=== PATIENT | female | born 1935 | race Caucasian/White ===

== ENCOUNTER 2023-06-26 15:34 | Inpatient (IN) | payer OTHER ==
[2023-06-26 17:40] LABS: BASO % 0.8 % (0-2.0); EOS % 7.8 % (0-4.5); HEMATOCRIT 22.9 % (32.4-45.2); HEMOGLOBIN 7.4 GM/dL (10.7-15.3); LYMPH % 25.5 % (8-40); MCH 30.3 pg (25.7-33.7); MCHC 32.3 g/dl (32.0-36.0); MEAN CELL VOLUME 93.5 fl (80-96); MEAN PLT VOLUME 7.7 fl (7.5-11.1); MONO % 6.8 % (3.8-10.2); NEUT % 59.1 % (42.8-82.8); PLATELET COUNT 330 10^3/uL (134-434); RBC 2.45 M/mm3 (3.60-5.2); RDW 15.7 % (11.6-15.6); WHITE BLOOD COUNT 8.4 K/mm3 (4.0-10.0)
[2023-06-26 17:46] LABS: INR 1.47 (0.83-1.09)
[2023-06-26 17:49] LABS: ACTIVATED PTT 29.5 SECONDS (25.2-36.5)
[2023-06-26 18:03] LABS: ALBUMIN 2.2 g/dl (3.4-5.0); BLOOD UREA NITROGEN 55.5 mg/dL (7-18); CALCIUM 11.8 mg/dL (8.5-10.1)
[2023-06-26 18:06] LABS: CREATININE 1.7 mg/dL (0.55-1.3)
[2023-06-26 18:08] LABS: BILIRUBIN,TOTAL 0.3 mg/dL (0.2-1); TOT PROT 7.3 g/dl (6.4-8.2)
[2023-06-27 10:00] LABS: BASO % 0.9 % (0-2.0); EOS % 8.5 % (0-4.5); HEMATOCRIT 24.8 % (32.4-45.2); HEMOGLOBIN 7.9 GM/dL (10.7-15.3); LYMPH % 23.8 % (8-40); MCH 30.4 pg (25.7-33.7); MCHC 31.8 g/dl (32.0-36.0); MEAN CELL VOLUME 95.8 fl (80-96); MEAN PLT VOLUME 8.3 fl (7.5-11.1); MONO % 6.6 % (3.8-10.2); NEUT % 60.2 % (42.8-82.8); PLATELET COUNT 338 10^3/uL (134-434); RBC 2.59 M/mm3 (3.60-5.2); RDW 15.7 % (11.6-15.6); WHITE BLOOD COUNT 8.1 K/mm3 (4.0-10.0)
[2023-06-27 10:31] LABS: POTASSIUM 3.4 mmol/L (3.5-5.1)
[2023-06-27 10:41] LABS: BLOOD UREA NITROGEN 52.3 mg/dL (7-18); CALCIUM 11.6 mg/dL (8.5-10.1)
[2023-06-27 10:42] LABS: ALBUMIN 2.4 g/dl (3.4-5.0)
[2023-06-27 10:44] LABS: CREATININE 1.7 mg/dL (0.55-1.3)
[2023-06-27 10:45] LABS: BILIRUBIN,TOTAL 0.5 mg/dL (0.2-1); TOT PROT 7.4 g/dl (6.4-8.2)
[2023-06-27] MEDS ORDERED: FUROSEMIDE 40 MG/4 ML INJECTABLE VIAL IVPUSH ONE (13:52)
[2023-06-27] MEDS ORDERED: POTASSIUM CHLORIDE ORAL LIQUID 20 MEQ/15 ML PO ONE (13:55)
[2023-06-27] MEDS ORDERED: PANTOPRAZOLE 40 MG TABLET PO SCH (14:00)
[2023-06-27] MEDS ORDERED: POTASSIUM CHLORIDE ORAL LIQUID 20 MEQ/15 ML PEG ONE (14:51)
[2023-06-27] MEDS: PANTOPRAZOLE SOD 40 MG SUSPENSION PACKET PO SCH (21:57)
[2023-06-28 05:43] VITALS: RESP 18
[2023-06-28] MEDS ORDERED: LISINOPRIL 5 MG TABLET PO SCH (10:00)
[2023-06-28] MEDS ORDERED: NADOLOL 20 MG TABLET (FP) PO SCH (10:00)
[2023-06-28] MEDS ORDERED: amLODIPine BESYLATE 5 MG TABLET (FP) PO SCH (10:00)
[2023-06-28] MEDS ORDERED: APIXABAN 2.5 MG TABLET PO SCH (10:00)
[2023-06-28 10:18] LABS: HEMATOCRIT 35.3 % (32.4-45.2); HEMOGLOBIN 11.8 GM/dL (10.7-15.3); LYMPH % 21.6 % (8-40); MCH 30.3 pg (25.7-33.7); MCHC 33.5 g/dl (32.0-36.0); MEAN CELL VOLUME 90.4 fl (80-96); MEAN PLT VOLUME 8.4 fl (7.5-11.1); MONO % 6.8 % (3.8-10.2); NEUT % 63.6 % (42.8-82.8); PLATELET COUNT 311 10^3/uL (134-434); RBC 3.91 M/mm3 (3.60-5.2); RDW 16.6 % (11.6-15.6); WHITE BLOOD COUNT 8.3 K/mm3 (4.0-10.0)
[2023-06-28 10:26] LABS: POTASSIUM 3.4 mmol/L (3.5-5.1)
[2023-06-28 10:38] LABS: ALBUMIN 2.5 g/dl (3.4-5.0); CALCIUM 11.8 mg/dL (8.5-10.1)
[2023-06-28 10:39] LABS: BLOOD UREA NITROGEN 54.7 mg/dL (7-18)
[2023-06-28 10:41] LABS: CREATININE 1.7 mg/dL (0.55-1.3)
[2023-06-28 10:43] LABS: BILIRUBIN,TOTAL 0.8 mg/dL (0.2-1); TOT PROT 7.8 g/dl (6.4-8.2)
[2023-06-28] MEDS: PANTOPRAZOLE SOD 40 MG SUSPENSION PACKET PO SCH (10:57)
[2023-06-28 11:07] VITALS: BMI 29.8
[2023-06-28] MEDS: ALBUTEROL SO4 2.5/IPRATROPIUM 0.5 INH SOL 3 ML VIAL.NEB. NEB SCH ×3 (11:25→21:22)
[2023-06-28] MEDS ORDERED: POTASSIUM CHLORIDE TABS 20 MEQ TABLET.ER (FP) PO ONE (15:50)
[2023-06-28] MEDS ORDERED: POTASSIUM CHLORIDE ORAL LIQUID 20 MEQ/15 ML GT ONE (18:44)
[2023-06-28] MEDS ORDERED: ATORVASTATIN CA 40 MG TABLET (FP) PO SCH (22:00)
[2023-06-28] MEDS: PANTOPRAZOLE SODIUM 40 MG VIAL IVPUSH SCH (22:18)
[2023-06-28] MEDS: APIXABAN 2.5 MG TABLET PEG SCH (22:18)
[2023-06-28] MEDS: ATORVASTATIN CA 40 MG TABLET (FP) PEG SCH (22:18)
[2023-06-29] MEDS: ALBUTEROL SO4 2.5/IPRATROPIUM 0.5 INH SOL 3 ML VIAL.NEB. NEB SCH ×4 (07:15→20:18)
[2023-06-29 10:40] LABS: BASO % 1.2 % (0-2.0); EOS % 5.7 % (0-4.5); HEMATOCRIT 35.3 % (32.4-45.2); HEMOGLOBIN 11.6 GM/dL (10.7-15.3); LYMPH % 21.1 % (8-40); MCH 30.2 pg (25.7-33.7); MCHC 32.9 g/dl (32.0-36.0); MEAN CELL VOLUME 91.7 fl (80-96); MEAN PLT VOLUME 8.3 fl (7.5-11.1); MONO % 4.4 % (3.8-10.2); NEUT % 67.6 % (42.8-82.8); PLATELET COUNT 357 10^3/uL (134-434); RBC 3.85 M/mm3 (3.60-5.2); RDW 16.8 % (11.6-15.6); WHITE BLOOD COUNT 10.6 K/mm3 (4.0-10.0)
[2023-06-29 11:04] LABS: POTASSIUM 3.8 mmol/L (3.5-5.1)
[2023-06-29 11:07] LABS: BLOOD UREA NITROGEN 59.2 mg/dL (7-18)
[2023-06-29 11:08] LABS: ALBUMIN 2.6 g/dl (3.4-5.0); CALCIUM 12.3 mg/dL (8.5-10.1)
[2023-06-29 11:11] LABS: CREATININE 1.9 mg/dL (0.55-1.3)
[2023-06-29 11:13] LABS: TOT PROT 8.2 g/dl (6.4-8.2)
[2023-06-29 11:24] LABS: BILIRUBIN,TOTAL 1.1 mg/dL (0.2-1)
[2023-06-29] MEDS: PANTOPRAZOLE SODIUM 40 MG VIAL IVPUSH SCH ×2 (12:08→21:34)
[2023-06-29] MEDS: NADOLOL 20 MG TABLET (FP) PEG SCH (12:11)
[2023-06-29] MEDS: amLODIPine BESYLATE 5 MG TABLET (FP) PEG SCH (12:11)
[2023-06-29] MEDS: LISINOPRIL 5 MG TABLET PEG SCH (12:11)
[2023-06-29] MEDS: APIXABAN 2.5 MG TABLET PEG SCH ×2 (12:12→21:35)
[2023-06-29] MEDS: ATORVASTATIN CA 40 MG TABLET (FP) PEG SCH (21:34)
[2023-06-30 08:08] LABS: CARCINOEMBRYONIC ANTIGEN 9.3 ng/mL (0.0-4.7)
[2023-06-30] MEDS: ALBUTEROL SO4 2.5/IPRATROPIUM 0.5 INH SOL 3 ML VIAL.NEB. NEB SCH ×4 (08:55→20:01)
[2023-06-30] MEDS ORDERED: SODIUM CHLORIDE 0.45% 1,000 ML IV SCH (09:15)
[2023-06-30] MEDS: NADOLOL 20 MG TABLET (FP) PEG SCH (10:54)
[2023-06-30] MEDS: amLODIPine BESYLATE 5 MG TABLET (FP) PEG SCH (10:54)
[2023-06-30] MEDS: APIXABAN 2.5 MG TABLET PEG SCH ×2 (10:54→22:41)
[2023-06-30] MEDS: LISINOPRIL 5 MG TABLET PEG SCH (10:54)
[2023-06-30] MEDS: PANTOPRAZOLE SODIUM 40 MG VIAL IVPUSH SCH ×2 (11:25→22:41)
[2023-06-30] MEDS: SODIUM CHLORIDE 0.45% 1,000 ML IV SCH ×2 (13:23→18:29)
[2023-06-30 16:23] LABS: EPI CELLS 30 /uL (0-25.1); HYALINE CASTS 1 /uL (0-3.1); PH,URINE 6.5 (5.0-8.0); URINE APPEARANCE CLEAR; URINE BACTERIA 2862 /uL (0-1359); URINE BILIRUBIN NEGATIVE (NEGATIVE); URINE COLOR YELLOW; URINE GLUCOSE (UA) NEGATIVE (NEGATIVE); URINE KETONE NEGATIVE (NEGATIVE); URINE LEUK ESTERASE NEGATIVE (NEGATIVE); URINE NITRITE NEGATIVE (NEGATIVE); URINE PROTEIN 2+ (NEGATIVE); URINE RBC 12 /uL (0-23.9); URINE UROBILINOGEN 0.2 mg/dL (0.2-1.0); URINE WBC 14 /uL (0-25.8)
[2023-06-30] MEDS: ATORVASTATIN CA 40 MG TABLET (FP) PEG SCH (22:41)
[2023-07-01 03:08] VITALS: BP 142/63; PULSE 74; TEMP 97.9
[2023-07-01] MEDS: ALBUTEROL SO4 2.5/IPRATROPIUM 0.5 INH SOL 3 ML VIAL.NEB. NEB SCH ×2 (07:40→11:15)
[2023-07-01] MEDS: SODIUM CHLORIDE 0.45% 1,000 ML IV SCH (08:29)
[2023-07-01] MEDS: PANTOPRAZOLE SODIUM 40 MG VIAL IVPUSH SCH (10:21)
[2023-07-01] MEDS: APIXABAN 2.5 MG TABLET PEG SCH (10:22)
[2023-07-01] MEDS: amLODIPine BESYLATE 5 MG TABLET (FP) PEG SCH (10:22)
[2023-07-01] MEDS: NADOLOL 20 MG TABLET (FP) PEG SCH (10:22)
[2023-07-01] MEDS: LISINOPRIL 5 MG TABLET PEG SCH (10:22)
[2023-07-01 11:12] LABS: BASO % 0.6 % (0-2.0); EOS % 9.6 % (0-4.5); HEMATOCRIT 31.7 % (32.4-45.2); HEMOGLOBIN 10.7 GM/dL (10.7-15.3); LYMPH % 23.2 % (8-40); MCHC 33.9 g/dl (32.0-36.0); MEAN CELL VOLUME 91.4 fl (80-96); MEAN PLT VOLUME 7.9 fl (7.5-11.1); MONO % 6.7 % (3.8-10.2); NEUT % 59.9 % (42.8-82.8); PLATELET COUNT 277 10^3/uL (134-434); RBC 3.47 M/mm3 (3.60-5.2); RDW 16.3 % (11.6-15.6); WHITE BLOOD COUNT 8.2 K/mm3 (4.0-10.0)
[2023-07-01 11:21] LABS: POTASSIUM 3.3 mmol/L (3.5-5.1)
[2023-07-01 11:37] LABS: BLOOD UREA NITROGEN 49.1 mg/dL (7-18)
[2023-07-01 11:41] LABS: CREATININE 1.5 mg/dL (0.55-1.3); PHOSPHOROUS 2.8 mg/dL (2.5-4.9)
[2023-07-01 11:42] LABS: BILIRUBIN,TOTAL 0.7 mg/dL (0.2-1); TOT PROT 6.6 g/dl (6.4-8.2)
[2023-07-01 11:54] LABS: ALBUMIN 2.1 g/dl (3.4-5.0)
[2023-07-01] MEDS ORDERED: POTASSIUM CHLORIDE ORAL LIQUID 20 MEQ/15 ML PO ONE (12:11)
[2023-07-01] MEDS ORDERED: SODIUM CHLORIDE 0.45% 1,000 ML IV SCH (12:16)
== END 2023-07-01 14:38 | DRG 377 ==
LOC: JER 15:34 → JERBED 18:20 → J6S 22:19 → OBSVTOIN 06-30 10:05
PROVIDERS: ADMIT Internal Medicine; ATTEND Family Medicine
PROC: 30233N1 Transfusion of Nonautologous Red Blood Cells into Peripheral Vein, Percutaneous Approach (ICD-10-PCS; principal; 2023-06-27)
DX: K92.2 Gastrointestinal hemorrhage, unspecified (principal); G92.8 Other toxic encephalopathy; E87.0 Hyperosmolality and hypernatremia; J90 Pleural effusion, not elsewhere classified; I13.0 Hypertensive heart and chronic kidney disease with heart failure and stage 1 through stage 4 chronic kidney disease, or unspecified chronic kidney disease; I69.354 Hemiplegia and hemiparesis following cerebral infarction affecting left non-dominant side; I69.351 Hemiplegia and hemiparesis following cerebral infarction affecting right dominant side; M19.011 Primary osteoarthritis, right shoulder; E78.5 Hyperlipidemia, unspecified; D63.1 Anemia in chronic kidney disease; I48.0 Paroxysmal atrial fibrillation; I25.10 Atherosclerotic heart disease of native coronary artery without angina pectoris; I45.10 Unspecified right bundle-branch block; E83.52 Hypercalcemia; N18.9 Chronic kidney disease, unspecified; N83.292 Other ovarian cyst, left side; K80.20 Calculus of gallbladder without cholecystitis without obstruction; R19.00 Intra-abdominal and pelvic swelling, mass and lump, unspecified site; I50.9 Heart failure, unspecified; Z95.1 Presence of aortocoronary bypass graft
CPT/HCPCS: 0241U-QW; 36415; 36430; 71045-TC-FY; 73030-TC-RT-FY; 76700-TC; 76856-TC; 80053; 81003; 82272; 82330; 82378; 82728; 82784; 83540; 83550; 83690; 83735; 83970; 84100; 84155; 84165; 84436; 84443; 85025; 85045; 85610; 85730; 86140; 86304; 86334; 86850; 86870; 86900; 86901; 86902; 86922; 87635; 93005; 93010; 94640; 99285-25; G0378; P9058

== ENCOUNTER 2023-10-01 16:30 | Emergency (ER) | payer OTHER ==
[2023-10-01] MEDS ORDERED: VANCOMYCIN 1,000 MG in DEXTROSE 5%-WATER - 250 ML IVPB ONE (17:39)
[2023-10-01] MEDS ORDERED: PIPERACILLIN/TAZOB 4.5 GM 4.5 GM in DEXTROSE 5%-WATER 100 ML IVPB ONE (17:40)
[2023-10-01] MEDS ORDERED: CLINDAMYCIN 600MG PREMIX IVPB 600 MG/50 ML BAG IVPB ONE ×2 (17:41→18:50)
[2023-10-01 18:06] VITALS: BMI 29.1
[2023-10-01] MEDS ORDERED: ACETAMINOPHEN 1000 MG/100 ML BAG IVPB ONE (18:39)
[2023-10-01 18:43] LABS: BASO % 0.3 % (0-2.0); EOS % 0.7 % (0-4.5); HEMATOCRIT 26.5 % (32.4-45.2); HEMOGLOBIN 8.9 GM/dL (10.7-15.3); LYMPH % 4.9 % (8-40); MCH 32.6 pg (25.7-33.7); MCHC 33.7 g/dl (32.0-36.0); MEAN PLT VOLUME 7.7 fl (7.5-11.1); MONO % 4.4 % (3.8-10.2); NEUT % 89.7 % (42.8-82.8); PLATELET COUNT 491 10^3/uL (134-434); RBC 2.73 M/mm3 (3.60-5.2); RDW 15.5 % (11.6-15.6); WHITE BLOOD COUNT 20.6 K/mm3 (4.0-10.0)
[2023-10-01] MEDS ORDERED: PIPERACILLIN/TAZOB 4.5 GM 4.5 GM/100 ML BAG IVPB ONE (18:49)
[2023-10-01] MEDS ORDERED: VANCOMYCIN 1 GRAM (PRE-DOCKED) 1,000 MG/250 ML BAG IVPB ONE (18:49)
[2023-10-01 18:56] LABS: CALCIUM 11.1 mg/dL (8.5-10.1)
[2023-10-01 18:57] LABS: ALBUMIN 2.2 g/dl (3.4-5.0)
[2023-10-01 19:00] LABS: CREATININE 1.1 mg/dL (0.55-1.3)
[2023-10-01 19:02] LABS: BILIRUBIN,TOTAL 0.8 mg/dL (0.2-1); TOT PROT 7.7 g/dl (6.4-8.2)
[2023-10-01] MEDS ORDERED: ACETAMINOPHEN INJECTION 100 ML IVPB ONE (19:16)
[2023-10-01 19:53] LABS: ANISOCYTOSIS 1+; MACROCYTOSIS 1+
[2023-10-01 20:51] VITALS: TEMP 100
[2023-10-01 22:38] VITALS: BP 108/48; PULSE 69; RESP 18
== END 2023-10-02 00:37 | disposition short-term general hospital (02) ==
LOC: JER 16:30
PROC: 3E03329 Introduction of Other Anti-infective into Peripheral Vein, Percutaneous Approach (ICD-10-PCS; principal; 2023-10-01)
PROC: 3E03329 Introduction of Other Anti-infective into Peripheral Vein, Percutaneous Approach (ICD-10-PCS; 2023-10-01)
PROC: 3E033NZ Introduction of Analgesics, Hypnotics, Sedatives into Peripheral Vein, Percutaneous Approach (ICD-10-PCS; 2023-10-01)
DX: R22.1 Localized swelling, mass and lump, neck (principal); L53.9 Erythematous condition, unspecified; K11.20 Sialoadenitis, unspecified; R68.2 Dry mouth, unspecified; R06.02 Shortness of breath; Z20.822 Contact with and (suspected) exposure to COVID-19
CPT/HCPCS: 0241U-QW; 36415; 70491-TC; 71045-TC-FY; 80053; 83605; 85025; 87040; 99285-25

== ENCOUNTER 2024-07-26 10:45 | Emergency (ER) | payer OTHER ==
[2024-07-26 12:03] VITALS: RESP 20; BMI 29.2
[2024-07-26] MEDS: IOHEXOL 180 MG/1 ML ML IJ ONE (18:17)
[2024-07-26 18:54] VITALS: BP 143/79; PULSE 105; TEMP 98
== END 2024-07-27 00:32 | disposition home or self-care (01) ==
LOC: JER 10:45
DX: K94.20 Gastrostomy complication, unspecified (principal)
CPT/HCPCS: 49440; 99283-25

== ENCOUNTER 2024-12-26 15:20 | Observation (INO) | payer OTHER ==
[2024-12-26 18:18] LABS: BASO % 0.4 % (0-2.0); EOS % 3.2 % (0-4.5); HEMATOCRIT 39.1 % (32.4-45.2); HEMOGLOBIN 12.8 GM/dL (10.7-15.3); LYMPH % 22.6 % (8-40); MCH 31.7 pg (25.7-33.7); MCHC 32.8 g/dl (32.0-36.0); MEAN CELL VOLUME 96.5 fl (80-96); MONO % 7.4 % (3.8-10.2); NEUT % 66.4 % (42.8-82.8); PLATELET COUNT 264 10^3/uL (134-434); RBC 4.05 M/mm3 (3.60-5.2); RDW 14.9 % (11.6-15.6); WHITE BLOOD COUNT 7.8 K/mm3 (4.0-10.0)
[2024-12-26 18:41] LABS: POTASSIUM 4.6 mmol/L (3.5-5.1)
[2024-12-26 18:43] LABS: CALCIUM 9.5 mg/dL (8.5-10.1)
[2024-12-26 18:44] LABS: ALBUMIN 3.1 g/dl (3.4-5.0)
[2024-12-26 18:47] LABS: CREATININE 0.6 mg/dL (0.55-1.3)
[2024-12-26 18:48] LABS: BILIRUBIN,TOTAL 0.6 mg/dL (0.2-1)
[2024-12-27 00:13] VITALS: BMI 29.7
[2024-12-27 08:55] LABS: BASO % 0.6 % (0-2.0); EOS % 4.7 % (0-4.5); HEMOGLOBIN 12.7 GM/dL (10.7-15.3); LYMPH % 23.5 % (8-40); MCH 31.7 pg (25.7-33.7); MCHC 32.6 g/dl (32.0-36.0); MEAN CELL VOLUME 97.3 fl (80-96); MEAN PLT VOLUME 7.8 fl (7.5-11.1); MONO % 9.1 % (3.8-10.2); NEUT % 62.1 % (42.8-82.8); PLATELET COUNT 238 10^3/uL (134-434); RBC 4.01 M/mm3 (3.60-5.2); RDW 14.7 % (11.6-15.6); WHITE BLOOD COUNT 6.6 K/mm3 (4.0-10.0)
[2024-12-27 14:12] LABS: BLOOD UREA NITROGEN 25.9 mg/dL (7-18); CALCIUM 9.4 mg/dL (8.5-10.1); CREATININE 0.7 mg/dL (0.55-1.3); POTASSIUM 4.3 mmol/L (3.5-5.1)
[2024-12-28] MEDS: ALBUTEROL SO4 2.5/IPRATROPIUM 0.5 INH SOL 3 ML VIAL.NEB. NEB SCH (07:55)
[2024-12-28] MEDS: amLODIPine BESYLATE 5 MG TABLET (FP) PEG SCH (11:00)
[2024-12-28] MEDS: FAMOTIDINE 20 MG/2.5 ML ORAL LIQUID PEG SCH (12:46)
[2024-12-28 16:21] VITALS: RESP 18
[2024-12-28 17:57] VITALS: TEMP 98.1
[2024-12-28 18:17] VITALS: BP 142/79; PULSE 116
[2024-12-28] MEDS ORDERED: ATORVASTATIN CA 40 MG TABLET (FP) PEG SCH (22:00)
== END 2024-12-28 19:03 ==
LOC: JER 15:20 → JERBED 19:17 → J5S 23:36
PROVIDERS: ADMIT Student in an Organized Health Care Education/Training Program; ATTEND Family Medicine
PROC: 0D20XUZ Change Feeding Device in Upper Intestinal Tract, External Approach (ICD-10-PCS; principal; 2024-12-26)
PROC: 3E0F7GC Introduction of Other Therapeutic Substance into Respiratory Tract, Via Natural or Artificial Opening (ICD-10-PCS; 2024-12-26)
DX: K94.23 Gastrostomy malfunction (principal); F03.90 Unspecified dementia, unspecified severity, without behavioral disturbance, psychotic disturbance, mood disturbance, and anxiety; I48.91 Unspecified atrial fibrillation; I11.0 Hypertensive heart disease with heart failure; D64.9 Anemia, unspecified; E78.5 Hyperlipidemia, unspecified
CPT/HCPCS: 36415; 49450; 74230-TC-FY; 80048; 80053; 85025; 87635; 92611-GN; 93005; 93010; 94640; 99285-25; G0378